=== PATIENT | female | born 1995 | race Caucasian/White ===

== ENCOUNTER 2021-09-24 00:47 | Emergency (ER) | payer MEDICAID ==
[~2021-09-24] VITALS: Ht 160 cm; Wt 92.5 kg
[2021-09-24] MEDS ORDERED: FAMOTIDINE 20MG/2ML VIAL IV ONE (02:30)
[2021-09-24] MEDS ORDERED: METHYLPREDNISOLONE SOD SUCC 125 MG/2 ML VIAL IV ONE (02:30)
[2021-09-24] MEDS ORDERED: ONDANSETRON HCL 4MG/2ML INJ IV ONE (02:30)
[2021-09-24] MEDS ORDERED: EPINEPHRINE 1:1000 1 MG/ML AMP SUBCUT ONE (02:30)
[2021-09-24] MEDS ORDERED: DIPHENHYDRAMINE 50MG/ML VIAL IV ONE (02:30)
[2021-09-24 02:34] LABS: BASOPHILS % 0.8 % (0.0-2.0); EOSINOPHILS % 0.7 % (0.0-5.0); HEMATOCRIT. 31.6 % (36.0-48.0); HEMOGLOBIN. 9.5 g/dL (12.0-16.0); LYMPHOCYTES % 14.3 % (20.0-50.0); MEAN CORPUSCULAR HEMOGLOBIN 20.1 pg (28.0-32.0); MEAN CORPUSCULAR VOLUME 67.1 fL (81.0-99.0); MEAN PLATELET VOLUME 9.8 fl (7.4-10.4); MONOCYTES % 5.7 % (2.0-8.0); NEUTROPHILS % 78.5 % (40.0-76.0); PLATELET 352 x1000/uL (130-400); RED BLOOD CELL COUNT 4.71 mill/uL (4.2-5.4); RED CELL DISTRIBUTION WIDTH 19.1 % (11.6-14.6)
[2021-09-24 02:40] LABS: CHLORIDE 109 mEq/L (98-107)
[2021-09-24 02:42] LABS: PLATELET ESTIMATE NORMAL
[2021-09-24] MEDS ORDERED: DIPH25TA62 MT (05:11)
[2021-09-24] MEDS ORDERED: PRED10TA23 MT (05:11)
[2021-09-24 05:43] VITALS: BP 123/75
[2021-09-25] MEDS ORDERED: MUPI1OIN4 TP (09:01)
[2021-09-25] MEDS ORDERED: CLIN-194 MT (09:01)
== END 2021-09-24 05:45 | disposition home or self-care (01) ==
LOC: ER 00:47
DX: T78.40XA Allergy, unspecified, initial encounter (principal); Z86.011 Personal history of benign neoplasm of the brain; Z98.890 Other specified postprocedural states; X58.XXXA Exposure to other specified factors, initial encounter
CPT/HCPCS: 36415; 71045; 80053; 85025; 96372; 96374; 96375; 99284; J1200; J2405; J2930; J3490

== ENCOUNTER 2021-09-25 08:02 | Emergency (ER) | payer MEDICAID ==
[~2021-09-25] VITALS: Ht 152.4 cm; Wt 89.0 kg
[~2021-09-25 08:02] MED LIST: DIPH25TA62 MT; PRED10TA23 MT
[2021-09-25 08:09] VITALS: BP 135/61
[2021-09-25] MEDS ORDERED: MUPI1OIN4 TP (09:01)
[2021-09-25] MEDS ORDERED: CLIN-194 MT (09:01)
== END 2021-09-25 09:14 | disposition home or self-care (01) ==
LOC: ER 08:02
DX: J03.90 Acute tonsillitis, unspecified (principal); L01.00 Impetigo, unspecified
CPT/HCPCS: 70360; 99284

== ENCOUNTER 2021-10-19 18:42 | Emergency (ER) | payer MEDICAID ==
[~2021-10-19] VITALS: Ht 160 cm; Wt 95.0 kg
[~2021-10-19 18:42] MED LIST changes: +CLIN-194 MT; +MUPI1OIN4 TP
[2021-10-19] MEDS ORDERED: LIDOCAINE HCL 1% 20ML VIAL (Pyxis) INJ INFIL ONE (21:15)
[2021-10-19] MEDS ORDERED: SODIUM CHLORIDE 0.9% 1,000 ML IV ONE (21:15)
[2021-10-19] MEDS ORDERED: ACETAMINOPHEN 325MG TABLET PO ONE (21:15)
[2021-10-19] MEDS ORDERED: TETANUS, DIPHTHERIA, PERTUSSIS VAC/PF 0.5ML (>10YR OLD) IM ONE (21:15)
[2021-10-19 21:31] LABS: EOSINOPHILS % 0.5 % (0.0-5.0); HEMATOCRIT. 29.9 % (36.0-48.0); HEMOGLOBIN. 9.1 g/dL (12.0-16.0); LYMPHOCYTES % 17.6 % (20.0-50.0); MEAN CORPUSCULAR HEMOGLOBIN 20.2 pg (28.0-32.0); MEAN CORPUSCULAR VOLUME 66.6 fL (81.0-99.0); MEAN PLATELET VOLUME 8.7 fl (7.4-10.4); MONOCYTES % 6.8 % (2.0-8.0); NEUTROPHILS % 74.1 % (40.0-76.0); PLATELET 380 x1000/uL (130-400); RED BLOOD CELL COUNT 4.48 mill/uL (4.2-5.4)
[2021-10-19 21:39] LABS: CHLORIDE 107 mEq/L (98-107)
[2021-10-19 22:38] LABS: CLARITY URINE CLEAR (CLEAR); COLOR URINE YELLOW (YELLOW); KETONES URINE NEGATIVE (NEGATIVE); LEUKOCYTE ESTERASE URINE TRACE (NEGATIVE); NITRITE URINE NEGATIVE (NEGATIVE); OCCULT BLOOD URINE NEGATIVE (NEGATIVE); PH URINE 5.5 (4.5-8.0); PROTEIN URINE NEGATIVE (NEGATIVE); SPECIFIC GRAVITY URINE 1.015 (1.005-1.030); UROBILINOGEN URINE 0.2 E.U./dL (0.2-1.0)
[2021-10-19 22:48] LABS: *AMPHETAMINES SCREEN URINE NEGATIVE (NEGATIVE); *BARBITURATES SCREEN URINE NEGATIVE (NEGATIVE); *BENZODIAZEPINES SCREEN URINE NEGATIVE (NEGATIVE); *COCAINE SCREEN URINE NEGATIVE (NEGATIVE); CANNABINOID URINE SCREEN NEGATIVE (NEGATIVE); METHADONE URINE SCREEN NEGATIVE (NEGATIVE); OPIATES URINE SCREEN NEGATIVE (NEGATIVE); PHENCYCLIDINE URINE SCREEN NEGATIVE (NEGATIVE)
[2021-10-19 23:16] LABS: PLATELET ESTIMATE NORMAL
[2021-10-20] MEDS ORDERED: BACITRACIN ZINC OINT UDPKT TOP ONE (01:00)
[2021-10-20 01:35] VITALS: BP 135/87
== END 2021-10-20 02:02 | disposition home or self-care (01) ==
LOC: ER 18:42
DX: S01.01XA Laceration without foreign body of scalp, initial encounter (principal); R55 Syncope and collapse; D64.9 Anemia, unspecified; Z86.011 Personal history of benign neoplasm of the brain; Z98.84 Bariatric surgery status; W01.198A Fall on same level from slipping, tripping and stumbling with subsequent striking against other object, initial encounter; Y93.89 Activity, other specified; Y92.89 Other specified places as the place of occurrence of the external cause
CPT/HCPCS: 12002; 36415; 70450; 80048; 80305; 81003; 81025; 85025; 90471; 90715; 96360; 96361; 99284; J3490; J7030

== ENCOUNTER 2021-11-01 13:34 | Emergency (ER) | payer MEDICAID | END 2021-11-01 15:09 | disposition left against medical advice (07) | LOC: ER 13:36 | DX: Z53.21 Procedure and treatment not carried out due to patient leaving prior to being seen by health care provider (principal) ==

== ENCOUNTER 2021-11-03 18:56 | Emergency (ER) | payer MEDICAID ==
[~2021-11-03] VITALS: Ht 160 cm; Wt 75.0 kg
[2021-11-03 20:34] VITALS: BP 134/69
== END 2021-11-03 20:35 | disposition home or self-care (01) ==
LOC: ER 18:56
DX: Z48.02 Encounter for removal of sutures (principal); Z86.011 Personal history of benign neoplasm of the brain; Z98.890 Other specified postprocedural states
CPT/HCPCS: 99281